=== PATIENT | female | born 1995 | race Caucasian/White ===

== ENCOUNTER 2018-07-03 13:29 | Emergency (ER) | payer BC ==
[2018-07-03 15:14] LABS: Absolute Monocytes 0.8 K/uL (0.1-1.3); Absolute Neutrophil 14.2 K/uL (1.8-8.0); Basophils % 0.1 % (0-1.3); Eosinophils % 0.2 % (0-4.4); Hematocrit 43.4 % (36.0-45.0); Lymphocytes % 6.1 % (15.3-44.8); MCH 32.4 pg (27.0-35.0); MCV 94.9 fL (80-100); Monocytes % 4.9 % (3.3-12.3); RBC Red Blood Cell Count 4.57 M/uL (3.86-4.86)
[2018-07-03 15:19] LABS: Urine Bacteria <20 /HPF (<20); Urine RBC <5 /HPF (NONE SEEN)
[2018-07-03 15:20] LABS: Urine Amorphous Sediment 3+ /HPF (NONE SEEN); Urine Culture Reflex Order NOT NEEDED
[2018-07-03 15:27] LABS: Bilirubin Direct 0.1 mg/dL (0-0.2); Bilirubin Total 0.4 mg/dL (0.2-1.0); Potassium 4.4 mmol/L (3.5-5.1)
[2018-07-03 15:51] LABS: Blood Morphology Comment NOT SEEN (NOT SEEN); Platelet Estimate ADEQ; Urine White Blood Cell Casts OK
--- NOTE | 2018-07-03 15:54 | EDPHYS ---
Physician Documentation [facility] Name: Gibson Shrestha Age: 23 yrs Sex: Female : 1995 Arrival Date: 07/03/2018 Time: 13:37 Bed 26 Private MD: ED Physician Dayday Dueñas HPI: 07/03 15:48 This 23 yrs old Female presents to ER via EMS with complaints of Vomiting. gs 15:48 Onset: The symptoms/episode began/occurred acutely, today. Possible causes: placed a gs nicotine patch. The symptoms are aggravated by nothing. The symptoms are alleviated by nothing. Associated signs and symptoms: Pertinent positives: palpitations. Severity of symptoms: At their worst the symptoms were moderate in the emergency department the symptoms have resolved and did so just prior to arrival. The patient has experienced similar episodes in the past, a few times, has been to physicians before has not received a diagnosis. 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 - Social history:: Smoking status: Patient uses tobacco products, Vapes. - Ebola Screening: : No symptoms or risks identified at this time. ROS: 15:48 All other systems are negative. gs Exam: 15:03 Respiratory: Lungs have equal breath sounds bilaterally, clear to auscultation and gs percussion. No rales, rhonchi or wheezes noted. No increased work of breathing, no retractions or nasal flaring. Abdomen/GI: Soft, non-tender, with normal bowel sounds. No distension or tympany. No guarding or rebound. No evidence of tenderness throughout. Back: No spinal tenderness. No costovertebral tenderness. Full range of motion. Skin: Warm, dry with normal turgor. Normal color with no rashes, no lesions, and no evidence of cellulitis. MS/ Extremity: Pulses equal, no cyanosis. Neurovascular intact. Full, normal range of motion. Neuro: Awake and alert, GCS 15, oriented to person, place, time, and situation. Cranial nerves II-XII grossly intact. Motor strength 5/5 in all extremities. Sensory grossly intact. Cerebellar exam normal. Normal gait. 15:03 ECG was reviewed by the Attending Physician. 15:48 Head/Face: Normocephalic, atraumatic. Eyes: Pupils equal round and reactive to light, gs extra-ocular motions intact. Lids and lashes normal. Conjunctiva and sclera are non-icteric and not injected. Cornea within normal limits. Periorbital areas with no swelling, redness, or edema. ENT: Nares patent. No nasal discharge, no septal abnormalities noted. Tympanic membranes are normal and external auditory canals are clear. Oropharynx with no redness, swelling, or masses, exudates, or evidence of obstruction, uvula midline. Mucous membranes moist. Neck: Trachea midline, no thyromegaly or masses palpated, and no cervical lymphadenopathy. Supple, full range of motion without nuchal rigidity, or vertebral point tenderness. No Meningismus. Chest/axilla: Normal chest wall appearance and motion. Nontender with no deformity. No lesions are appreciated. Cardiovascular: Regular rate and rhythm with a normal S1 and S2. No gallops, murmurs, or rubs. Normal PMI, no JVD. No pulse deficits. 15:48 Constitutional: The patient appears alert, awake. Vital Signs: 13:42 BP 111 / 79; Pulse 63; Resp 18; Temp 97.6(O); Pulse Ox 100% on R/A; tl3 14:59 BP 108 / 77; Pulse 74; Resp 18; Pulse Ox 100% on R/A; tl3 15:50 BP 113 / 76; Pulse 73; Resp 18; Pulse Ox 100% on R/A; tl3 MDM: 13:51 Patient medically screened. gs 15:48 Differential diagnosis: gastroenteritis, arrythmia, medication intolerance. Data reviewed: vital signs, nurses notes. Response to treatment: the patient's symptoms have resolved after treatment, and as a result, I will discharge patient. 07/03 13:51 Order name: Basic Metabolic Panel; Complete Time: 15:47 07/03 13:51 Order name: CBC with Diff; Complete Time: 15:55 07/03 13:51 Order name: Hepatic Function; Complete Time: 15:47 07/03 13:51 Order name: Lipase; Complete Time: 15:47 07/03 13:51 Order name: Urine Microscopic Only; Complete Time: 15:47 07/03 15:04 Order name: Urine Dipstick--Ancillary (enter results) 07/03 13:51 Order name: EKG; Complete Time: 13:52 07/03 13:51 Order name: EKG - Nurse/Tech; Complete Time: 14:45 07/03 13:51 Order name: IV Saline Lock; Complete Time: 14:32 07/03 13:51 Order name: Labs collected and sent; Complete Time: 14:32 07/03 13:51 Order name: Urine Test (obtain specimen); Complete Time: 14:45 07/03 13:51 Order name: Urine Dipstick-Ancillary (obtain specimen); Complete Time: 14:45 07/03 15:04 Order name: Urine --Ancillary (enter results) 07/03 15:26 Order name: CBC Smear Scan; Complete Time: 15:55 EDMS EC:03 Rate is 71 beats/min. Rhythm is regular. ME interval is normal. QRS interval is gs prolonged. No ST changes noted. Clinical impression: Normal ECG and WPW. Interpreted by me. Administered Medications: No medications were administered Disposition: 07/03/18 15:53 Discharged to Home. Impression: Vomiting, Pre-excitation syndrome. - Condition is Stable. - Discharge Instructions: Nausea and Vomiting, Adult, Gsbxf-Aurlbhnth-Nzujx Syndrome. - Medication Reconciliation Form, Thank You Letter, Antibiotic Education, Prescription Opioid Use, Work release form form. - Follow up: Private Physician; When: 2 - 3 days; Reason: Re-evaluation by your physician. Follow up: Martínez Riggs MD; When: 2 - 3 days; Reason: Re-evaluation by your physician. Signatures: Dispatcher [facility]Dayday Bhatia MD MD Brandy Botello, RN RN tl3 Corrections: (The following items were deleted from the chart) 15:53 15:53 07/03/2018 15:53 Discharged to Home. Impression: Vomiting; Pre-excitation gs syndrome. Condition is Stable. Forms are Medication Reconciliation Form, Thank You Letter, Antibiotic Education, Prescription Opioid Use. Follow up: Private Physician; When: 2 - 3 days; Reason: Re-evaluation by your physician. 16:13 15:53 07/03/2018 15:53 Discharged to Home. Impression: Vomiting; Pre-excitation tl3 syndrome. Condition is Stable. Discharge Instructions: Nausea and Vomiting, Adult, Evkup-Ffwagdjci-Loxdr Syndrome. Forms are Medication Reconciliation Form, Thank You Letter, Antibiotic Education, Prescription Opioid Use. Follow up: Private Physician; When: 2 - 3 days; Reason: Re-evaluation by your physician. Follow up: Martínez Riggs; When: 2 - 3 days; Reason: Re-evaluation by your physician. gs
--- NOTE | 2018-07-03 15:54 | ER ---
Nurse's Notes [facility] Name: Gibson Shrestha Age: 23 yrs Sex: Female : 1995 Arrival Date: 07/03/2018 Time: 13:37 Bed 26 Private MD: Diagnosis: Vomiting;Pre-excitation syndrome Presentation: 07/03 13:38 Presenting complaint: EMS states: pt became lightheaded and started vomiting at work tl3 today, she is trying to stop "Vaping" and placed a 21 mg Nicotine patch on 30 minutes prior to events, removed patch immediately. Has vomited three times total, had 4 mg Zofran en route. No longer nauseated. Transition of care: patient was not received from another setting of care. Onset of symptoms was July 03, 2018. Risk Assessment: Do you want to hurt yourself or someone else? Patient reports no desire to harm self or others. Initial Sepsis Screen: Does the patient meet any 2 criteria? No. Patient's initial sepsis screen is negative. Does the patient have a suspected source of infection? No. Patient's initial sepsis screen is negative. Care prior to arrival: Medication(s) given: zofran 4 mg, IV initiated. 20 GA, in the right hand. 13:38 Method Of Arrival: EMS: [facility] tl3 13:38 Acuity: LIA 3 tl3 Triage Assessment: 13:42 General: Appears comfortable, slender, well groomed, well developed, well nourished, tl3 Behavior is calm, cooperative, appropriate for age, flat. Pain: Denies pain. EENT: No deficits noted. No signs and/or symptoms were reported regarding the EENT system. Neuro: Level of Consciousness is awake, alert, obeys commands, Oriented to person, place, time, situation, none. Cardiovascular: Patient's skin is warm and dry. Respiratory: Airway is patent Respiratory effort is even, unlabored, Respiratory pattern is regular, symmetrical. GI: Abdomen is flat, Reports nausea, vomiting. : No signs and/or symptoms were reported regarding the genitourinary system. Derm: No signs and/or symptoms reported regarding the dermatologic system. Musculoskeletal: No signs and/or symptoms reported regarding the musculoskeletal system. RN HEDIS: 13:42 0, LMP 06/2018 tl3 Historical: - Allergies: 13:42 Latex, Natural Rubber; tl3 - Home Meds: 13:42 None [Active]; tl3 - PMHx: 13:42 None; tl3 - PSHx: 13:42 None; tl3 - Immunization history:: Adult Immunizations up to date. - Social history:: Smoking status: Patient uses tobacco products, Vapes. - Ebola Screening: : No symptoms or risks identified at this time. Screenin:45 Abuse screen: Denies threats or abuse. Nutritional screening: No deficits noted. tl3 Tuberculosis screening: No symptoms or risk factors identified. Fall Risk None identified. Assessment: 13:45 Reassessment: No changes from previously documented assessment. GI: Reports vomiting. tl3 14:59 Reassessment: Patient appears in no apparent distress at this time. No changes from tl3 previously documented assessment. Patient and/or family updated on plan of care and expected duration. Pain level reassessed. Patient is alert, oriented x 3, equal unlabored respirations, skin warm/dry/pink. family at bedside, pt is feeling much better, no needs at this time. 14:59 GI: Abdomen is flat, non-distended. tl3 15:50 Reassessment: Patient appears in no apparent distress at this time. No changes from tl3 previously documented assessment. Patient and/or family updated on plan of care and expected duration. Pain level reassessed. Patient is alert, oriented x 3, equal unlabored respirations, skin warm/dry/pink. Vital Signs: 13:42 BP 111 / 79; Pulse 63; Resp 18; Temp 97.6(O); Pulse Ox 100% on R/A; tl3 14:59 BP 108 / 77; Pulse 74; Resp 18; Pulse Ox 100% on R/A; tl3 15:50 BP 113 / 76; Pulse 73; Resp 18; Pulse Ox 100% on R/A; tl3 ED Course: 13:37 Patient arrived in ED. tl3 13:38 Dayday Dueñas MD is Attending Physician. gs 13:38 Brandy Botello, HELENA is Primary Nurse. tl3 13:42 Triage completed. tl3 13:42 Arm band placed on right wrist. tl3 13:45 Patient has correct armband on for positive identification. Bed in low position. Call tl3 light in reach. Side rails up X 1. Pulse ox on. NIBP on. Warm blanket given. Pillow given. 13:45 No provider procedures requiring assistance completed. tl3 13:45 Maintain EMS IV. Dressing intact. Good blood return noted. Site clean \\T\\ dry. tl3 14:59 Initial lab(s) drawn, by me, sent to lab. Urine collected: clean catch specimen, clear, tl3 Amount Voided: 100mL. 15:53 Martínez Riggs MD is Referral Physician. gs 16:12 IV discontinued, intact, bleeding controlled, No redness/swelling at site. Pressure tl3 dressing applied. Administered Medications: No medications were administered Outcome: 15:53 Discharge ordered by . gs 16:12 Discharged to home ambulatory. tl3 16:12 Condition: improved 16:12 Discharge instructions given to patient, family, Instructed on discharge instructions, follow up and referral plans. Demonstrated understanding of instructions, follow-up care. 16:13 Patient left the ED. tl3 Signatures: Dayday Dueñas MD MD Brandy Botello, RN RN tl3 Corrections: (The following items were deleted from the chart) 15:00 14:59 GI: Reports tl3 tl3
[2018-07-03 20:27] LABS: Urine Blood NEGATIVE (NEG); Urine Glucose NEGATIVE (NEG); Urine Protein NEGATIVE (NEG); Urine Specific Gravity 1.015 (1.005-1.030); Urine pH 7.5 (5.0-7.0)
--- NOTE | 2018-07-04 06:46 | EKG ---
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
== END 2018-07-03 16:13 | disposition home or self-care (01) ==
LOC: ER 13:29
DX: I45.6 Pre-excitation syndrome (principal); Z72.0 Tobacco use; Z91.040 Latex allergy status; Z91.048 Other nonmedicinal substance allergy status
CPT/HCPCS: 36415; 80048; 80076; 81003; 81015; 81025; 83690; 85025; 93005; 99283

== ENCOUNTER 2021-09-09 23:58 | Emergency (ER) | payer BC ==
--- OUTSIDE RECORDS SUMMARY | 2021-09-10 | XMS REPORT | Continuity of Care Document ---
:1995 Author Organization [facility] t Address [address] [place] [address] Care Team Providers Name Role Phone ELIZABETH PHOENIX Attending Clinician Unavailable [facility] PHOENIX Admitting Clinician Unavailable Problems This patient has no known problems. Allergies, Adverse Reactions, Alerts Allergy Allergy Status Severity Reaction(s) Onset Inactive Treating Comm ents Source Name Type Date Date Clinician NO KNOWN Drug Active [facility] ALLERGIE Class [facility] Medications This patient has no known medications. Procedures This patient has no known procedures. Encounters Start End Encounter Admission Attending Care Care Encounter Source Date/Time Date/Time Type Type Clinicians Facility Department ID 2021-05-06 2021-05-06 Outpatient [facility] [id number] -[id number] [facility] 19:20:00 19:20:00 [id number] [facility] Results Test Description Test Time Test Comments Results Result Comments Source BUN 2018-12-24 05:48:00 Test Item Value Reference Range Interpretation Comme nts BLOOD UREA NITROGEN (BEAKER) (test code = 354) 10 mg/dL 7-21 [id number] 05:48:00 Test Item Value Reference Range Interpretation Comments SODIUM (BEAKER) (test code = 381) 135 meq/L 136-145 L POTASSIUM (BEAKER) (test code = 4.1 meq/L 3.5-5.1 379) CHLORIDE (BEAKER) (test code = 382) 109 meq/L 98-107 H CO2 (BEAKER) (test code = 355) 20 meq/L 22-29 L [id number] 05:48:00 Test Item Value Reference Range Interpretation Comments CREATININE (BEAKER) 0.68 mg/dL 0.57-1.25 (test code = 358) EGFR (BEAKER) (test 105 mL/min/1.73 ESTIM ATED GFR IS code = 1092) sq m NOT ACCURATE CREATININE CLEARANCE IN PREDICTING GLOMERULAR FILTRATION RATE . ESTIMATED GFR I S NOT APPLICABLE FOR DIALYSIS PATIEN TS. CBC (HEMOGRAM ONLY)2018-12-24 04:50:00 Test Item Value Reference Range Interpretation Comments WHITE BLOOD CELL COUNT (BEAKER) 6.6 K/ L 3.5-10.5 (test code = 775) RED BLOOD CELL COUNT (BEAKER) 4.32 M/ L 3.93-5.22 (test code = 761) HEMOGLOBIN (BEAKER) (test code = 13.7 GM/DL 11.2-15.7 410) HEMATOCRIT (BEAKER) (test code = 42.0 % 34.1-44.9 411) MEAN CORPUSCULAR VOLUME (BEAKER) 97.2 fL 79.4-94.8 H (test code = 753) MEAN CORPUSCULAR HEMOGLOBIN 31.7 pg 25.6-32.2 (BEAKER) (test code = 751) MEAN CORPUSCULAR HEMOGLOBIN CONC 32.6 GM/DL 32.2-35.5 (BEAKER) (test code = 752) RED CELL DISTRIBUTION WIDTH 11.7 % 11.7-14.4 (BEAKER) (test code = 412) PLATELET COUNT (BEAKER) (test 220 K/CU MM 150-450 code = 756) MEAN PLATELET VOLUME (BEAKER) 10.2 fL 9.4-12.3 (test code = 754) NUCLEATED RED BLOOD CELLS 0 /100 WBC 0-0 (BEAKER) (test code = 413) [id number] 20:32:00 Test Item Value Reference Range Interpretation Comments ACTIVATED CLOTTING TIME 109 sec TEST ED AT [place] [address] ([facility]) (test code = HARINI COOK [facility]) [id number] 19:30:00 Test Item Value Reference Range Interpretation Comments ACTIVATED CLOTTING TIME 252 sec TEST ED AT [place] [address] ([facility]) (test code = HARINI Mcgarry [place] [address]) [id number] 08:53:00 Test Item Value Reference Range Interpretation Comments MAGNESIUM (BEAKER) (test code = 2.3 mg/dL 1.6-2.6 627) BASIC METABOLIC [id number] 08:53:00 Test Item Value Reference Range Interpretation Comments SODIUM (BEAKER) 139 meq/L 136-145 (test code = 381) POTASSIUM (BEAKER) 4.6 meq/L 3.5-5.1 (test code = 379) CHLORIDE (BEAKER) 108 meq/L 98-107 H (test code = 382) CO2 (BEAKER) (test 27 meq/L 22-29 code = 355) BLOOD UREA NITROGEN 13 mg/dL 7-21 (BEAKER) (test code = 354) CREATININE (BEAKER) 0.71 mg/dL 0.57-1.25 (test code = 358) GLUCOSE RANDOM 86 mg/dL 70-105 (BEAKER) (test code = 652) CALCIUM (BEAKER) 9.2 mg/dL 8.4-10.2 (test code = 697) EGFR (BEAKER) (test 100 mL/min/1.73 ESTIM ATED GFR IS code = 1092) sq m NOT ACCURATE CREATININE CLEARANCE IN PREDICTING GLOMERULAR FILTRATION RATE . ESTIMATED GFR I S NOT APPLICABLE FOR DIALYSIS PATIEN TS. PROTHROMBIN TIME/[id number] 08:53:00 Test Item Value Reference Range Interpretation Comments PROTIME (BEAKER) (test code = 13.1 seconds 11.7-14.7 759) INR (BEAKER) (test code = 370) 1.0 <=5.9 RECOMMENDED COUMADIN/WARFARIN INR THERAPY RANGESSTANDARD DOSE: 2.0 - 3.0 Includes: PROPHYLAXIS forvenous thrombosis, systemic embolization; TREATMENT for venous thrombosis and/or pulmonary embolus.HIGH RISK: Target INR is 2.5-3.5 for patients with mechanical heart valves.Within 24 hours, if on CoumadinCBC W/PLT COUNT & AUTO [id number] 08:35:00 Test Item Value Reference Range Interpretation Comments WHITE BLOOD CELL COUNT (BEAKER) 3.9 K/ L 3.5-10.5 (test code = 775) RED BLOOD CELL COUNT (BEAKER) 4.40 M/ L 3.93-5.22 (test code = 761) HEMOGLOBIN (BEAKER) (test code = 13.9 GM/DL 11.2-15.7 410) HEMATOCRIT (BEAKER) (test code = 43.0 % 34.1-44.9 411) MEAN CORPUSCULAR VOLUME (BEAKER) 97.7 fL 79.4-94.8 H (test code = 753) MEAN CORPUSCULAR HEMOGLOBIN 31.6 pg 25.6-32.2 (BEAKER) (test code = 751) MEAN CORPUSCULAR HEMOGLOBIN CONC 32.3 GM/DL 32.2-35.5 (BEAKER) (test code = 752) RED CELL DISTRIBUTION WIDTH 11.8 % 11.7-14.4 (BEAKER) (test code = 412) PLATELET COUNT (BEAKER) (test 207 K/CU MM 150-450 code = 756) MEAN PLATELET VOLUME (BEAKER) 10.3 fL 9.4-12.3 (test code = 754) NUCLEATED RED BLOOD CELLS 0 /100 WBC 0-0 (BEAKER) (test code = 413) NEUTROPHILS RELATIVE PERCENT 50 % (BEAKER) (test code = 429) LYMPHOCYTES RELATIVE PERCENT 33 % (BEAKER) (test code = 430) MONOCYTES RELATIVE PERCENT 12 % (BEAKER) (test code = 431) EOSINOPHILS RELATIVE PERCENT 3 % (BEAKER) (test code = 432) BASOPHILS RELATIVE PERCENT 1 % (BEAKER) (test code = 437) NEUTROPHILS ABSOLUTE COUNT 1.94 K/ L 1.56-6.13 (BEAKER) (test code = 670) LYMPHOCYTES ABSOLUTE COUNT 1.29 K/ L 1.18-3.74 (BEAKER) (test code = 414) MONOCYTES ABSOLUTE COUNT (BEAKER) 0.47 K/ L 0.24-0.36 H (test code = 415) EOSINOPHILS ABSOLUTE COUNT 0.12 K/ L 0.04-0.36 (BEAKER) (test code = 416) BASOPHILS ABSOLUTE COUNT (BEAKER) 0.04 K/ L 0.01-0.08 (test code = 417) IMMATURE GRANULOCYTES-RELATIVE 0 % 0-1 PERCENT (BEAKER) (test code = 0868)
[2021-09-10] MEDS ORDERED: NA CHLORIDE 0.9% 1,000 ML ONE ×2 (00:26→04:07)
[2021-09-10] MEDS ORDERED: ONDANSETRON 4 MG/2 ML VIAL ONE (00:52)
[2021-09-10 01:19] LABS: Absolute Lymphocytes (CBC) 1.9 K/uL (0.7-4.9); Basophils % 0.4 % (0-1.3); Hematocrit 35.3 % (36.0-45.0); Lymphocytes % 18.7 % (15.3-44.8); MPV 9.2 fL (7.6-11.3); RBC Red Blood Cell Count 3.73 M/uL (3.86-4.86)
[2021-09-10 01:25] LABS: BUN Blood Urea Nitrogen 13 mg/dL (7-18); Bicarbonate 21 mmol/L (21-32); Glucose Level 112 mg/dL (74-106); Potassium 3.9 mmol/L (3.5-5.1); Sodium Level 140 mmol/L (136-145)
--- NOTE | 2021-09-10 03:31 | ER ---
Nurse's Notes [facility] Name: Gibson Lopez Age: 26 yrs Sex: Female : 1995 Arrival Date: 09/10/2021 Time: 00:00 Bed 14 Private MD: Diagnosis: Delayed or excessive hemorrhage following incomplete spontaneous Presentation: 09/10 00:01 Chief complaint: Patient states: I am 11 weeks , 2 weeks ago I went to my OB ld1 doctor and she said the baby was four weeks behind growth. My OB gave me some medicine to terminate the , the first dose did not work so they gave me a second one. Now I am bleeding really bad and my stomach is cramping, I am losing a lot of blood. Coronavirus screen: At this time, the client does not indicate any symptoms associated with coronavirus-19. Ebola Screen: No symptoms or risks identified at this time. Initial Sepsis Screen: Does the patient meet any 2 criteria? No. Patient's initial sepsis screen is negative. Does the patient have a suspected source of infection? No. Patient's initial sepsis screen is negative. Risk Assessment: Do you want to hurt yourself or someone else? Patient reports no desire to harm self or others. Onset of symptoms was September 10, 2021. 00:01 Method Of Arrival: EMS: [facility] ld1 00:01 Acuity: LIA 3 ld1 Triage Assessment: 00:04 General: Appears in no apparent distress. comfortable, Behavior is calm, cooperative, ld1 appropriate for age. Pain: Complains of pain in right lower quadrant and left lower quadrant Pain does not radiate. Pain currently is 6 out of 10 on a pain scale. at worst was 10 out of 10 on a pain scale. Quality of pain is described as crampy, throbbing, Pain began suddenly, Is intermittent. EENT: No signs and/or symptoms were reported regarding the EENT system. Neuro: Level of Consciousness is awake, alert, obeys commands, Oriented to person, place, time, situation, Appropriate for age. Cardiovascular: Capillary refill < 3 seconds Patient's skin is warm and dry. Respiratory: Airway is patent Respiratory effort is even, unlabored, Respiratory pattern is regular, symmetrical. GI: Abdomen is flat, non-distended. : Reports cramping, in bilateral lower quadrant(s) vaginal bleeding that is with clots, heavy flow. Derm: No signs and/or symptoms reported regarding the dermatologic system. Musculoskeletal: No signs and/or symptoms reported regarding the musculoskeletal system. 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 - Social history:: Smoking status: Patient denies any tobacco usage or history of. Patient/guardian denies using alcohol. Screenin:04 Abuse screen: Denies threats or abuse. Nutritional screening: No deficits noted. as6 Tuberculosis screening: No symptoms or risk factors identified. Fall Risk None identified. Assessment: 00:31 Reassessment: when pt was receiving pt had a vasovagal response, Bradley came to bedside, as6 pt pale, states feeling dizzy and nausea. 02:02 Reassessment: Patient states feeling better. General: Appears in no apparent distress. as6 comfortable, Behavior is calm. Derm: Skin is pale. 03:23 Reassessment: pt ambulating to bathroom, no signs of dizziness reported. as6 04:14 Reassessment: Patient is alert, oriented x 3, equal unlabored respirations, skin bb warm/dry/pink. notified Dr Xiong of pt BP 92/55 new orders received pt medicated see MAR awaiting discharge for completion of IV fluids. 05:13 Reassessment: Patient is alert, oriented x 3, equal unlabored respirations, skin bb warm/dry/pink. pt verbalized understanding of and agrees to plan of care discharge instructions given pt ambulated with steady gait to exit accompanied by family. Vital Signs: 00:09 BP 102 / 69; Pulse 93; Resp 11; Temp 98.6(O); Pulse Ox 100% on R/A; Weight 63.96 kg; ld1 Height 5 ft. 2 in. (157.48 cm); Pain 6/10; 01:53 BP 91 / 52; Pulse 75; Resp 13 S; Pulse Ox 100% on R/A; as6 03:28 BP 98 / 59; Pulse 60; Resp 20 S; Pulse Ox 100% on R/A; as6 04:14 BP 92 / 55; Pulse 64; Resp 16 S; Pulse Ox 97% on R/A; bb 05:15 BP 98 / 45; Pulse 64; Resp 16 S; Temp 98.4(O); Pulse Ox 100% on R/A; bb 00:09 Body Mass Index 25.79 (63.96 kg, 157.48 cm) ld1 ED Course: 00:00 Patient arrived in ED. ld1 00:04 Triage completed. ld1 00:04 Arm band placed on right wrist. ld1 00:07 Bradley Mari PA is PHCP. jr8 00:07 Everardo Xiong MD is Attending Physician. jr8 00:24 Dominick Zapata RN is Primary Nurse. as6 00:35 T\T\S collected, blood band applied to patient. Inserted saline lock: 20 gauge in right ds4 antecubital area, using aseptic technique. Blood collected. 02:04 Placed in gown. Bed in low position. Call light in reach. Side rails up X2. Adult w/ as6 patient. playground monitor on. Pulse ox on. NIBP on. 02:17 US Transvaginal Ob In Process Unspecified. EDMS 05:15 IV discontinued, intact, bleeding controlled, No redness/swelling at site. Pressure bb dressing applied. 05:16 No provider procedures requiring assistance completed. bb Administered Medications: 00:30 Drug: NS 0.9% 1000 ml Route: IV; Rate: 1 bolus; Site: right antecubital; as6 02:23 Follow up: Response: No adverse reaction; IV Status: Completed infusion; IV Intake: as6 1000ml 00:55 Drug: Zofran (Ondansetron) 4 mg Route: IVP; Site: right antecubital; as6 02:23 Follow up: Response: No adverse reaction as6 04:15 Drug: NS 0.9% 1000 ml Route: IV; Rate: 1 bolus; Site: right antecubital; bb 05:10 Follow up: IV Status: Completed infusion; IV Intake: 1000ml bb Intake: 02:23 IV: 1000ml; Total: 1000ml. as6 05:10 IV: 1000ml; Total: 2000ml. bb Outcome: 03:31 Discharge ordered by MD. hart 05:16 Discharged to home ambulatory, with family. bb 05:16 Condition: stable 05:16 Discharge instructions given to patient, Instructed on discharge instructions, follow up and referral plans. Demonstrated understanding of instructions, follow-up care. 05:16 Patient left the ED. bb Signatures: Dispatcher [employer] EDSonali Cain RN RN Bradley Dejesus PA PA jr8 Burak Soriano4 Neela Florence RN RN ld1 Dominick Zapata RN RN as6 Corrections: (The following items were deleted from the chart) 00:11 00:04 PMHx: None; ld1 ld1 00:11 00:04 PSHx: None; ld1 ld1
--- NOTE | 2021-09-10 03:31 | EDPHYS ---
Physician Documentation [facility] Name: Gibson Lopez Age: 26 yrs Sex: Female : 1995 Arrival Date: 09/10/2021 Time: 00:00 Bed 14 Private MD: ED Physician Everardo Xiong HPI: 09/10 00:56 This 26 yrs old Female presents to ER via EMS with complaints of Miscarriage. jr8 00:56 Modifying factors: The patient symptoms are alleviated by nothing, the patient symptoms jr8 are aggravated by activity. The patient has not experienced similar symptoms in the past. The patient has been recently seen by a physician:. This is a 26-year-old female with that presented to the emergency room with complaints of vaginal bleeding. Patient recently saw OB and was supposed to be approximately 11 weeks . Gestation of the fetus was measuring at 6 weeks. OB talk to them to explain that child had no signs of life. Opted to do medication induced for the miscarriage. Patient stated that she started to bleed heavily tonight and became weak and dizzy.. 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 - Social history:: Smoking status: Patient denies any tobacco usage or history of. Patient/guardian denies using alcohol. ROS: 00:56 Eyes: Negative for injury, pain, redness, and discharge, ENT: Negative for injury, jr8 pain, and discharge, Neck: Negative for injury, pain, and swelling, Cardiovascular: Negative for chest pain, palpitations, and edema, Respiratory: Negative for shortness of breath, cough, wheezing, and pleuritic chest pain, Back: Negative for injury and pain, MS/Extremity: Negative for injury and deformity, Skin: Negative for injury, rash, and discoloration, Neuro: Negative for headache, weakness, numbness, tingling, and seizure. 00:56 Abdomen/GI: Positive for abdominal cramps. 00:56 : Positive for vaginal bleeding. Exam: 00:56 Constitutional: This is a well developed, well nourished patient who is awake, alert, jr8 and in no acute distress. Cardiovascular: Regular rate and rhythm with a normal S1 and S2. No gallops, murmurs, or rubs. Normal PMI, no JVD. No pulse deficits. Respiratory: Lungs have equal breath sounds bilaterally, clear to auscultation and percussion. No rales, rhonchi or wheezes noted. No increased work of breathing, no retractions or nasal flaring. Abdomen/GI: Soft, non-tender, with normal bowel sounds. No distension or tympany. No guarding or rebound. No evidence of tenderness throughout. Back: No spinal tenderness. No costovertebral tenderness. Full range of motion. Skin: Warm, dry with normal turgor. Normal color with no rashes, no lesions, and no evidence of cellulitis. MS/ Extremity: Pulses equal, no cyanosis. Neurovascular intact. Full, normal range of motion. Neuro: Awake and alert, GCS 15, oriented to person, place, time, and situation. Cranial nerves II-XII grossly intact. Motor strength 5/5 in all extremities. Sensory grossly intact. 00:56 : Pelvic Exam: External exam: is normal, Speculum exam: moderate bleeding, blood clots in vaginal vault, os that is open, tissue in cervix is seen, the nurse was present for the exam. Vital Signs: 00:09 BP 102 / 69; Pulse 93; Resp 11; Temp 98.6(O); Pulse Ox 100% on R/A; Weight 63.96 kg; ld1 Height 5 ft. 2 in. (157.48 cm); Pain 6/10; 01:53 BP 91 / 52; Pulse 75; Resp 13 S; Pulse Ox 100% on R/A; as6 03:28 BP 98 / 59; Pulse 60; Resp 20 S; Pulse Ox 100% on R/A; as6 04:14 BP 92 / 55; Pulse 64; Resp 16 S; Pulse Ox 97% on R/A; bb 05:15 BP 98 / 45; Pulse 64; Resp 16 S; Temp 98.4(O); Pulse Ox 100% on R/A; bb 00:09 Body Mass Index 25.79 (63.96 kg, 157.48 cm) ld1 MDM: 00:07 Patient medically screened. jr8 00:50 Data reviewed: vital signs, nurses notes, lab test result(s), radiologic studies, jr8 ultrasound. Data interpreted: Pulse oximetry: on room air is 100 %. Interpretation: normal. Counseling: I had a detailed discussion with the patient and/or guardian regarding: the historical points, exam findings, and any diagnostic results supporting the discharge/admit diagnosis, lab results, radiology results. ED course: I was able to complete pelvic exam on patient. Was able to remove POC from the cervical os. No gross hemorrhaging at this time. Will complete transvaginal ultrasound to confirm there is no more POC present. 03:29 ED course: Patient remains hemodynamically stable at this time. Has been able to get up jr8 and walk to the bathroom without any dizziness, weakness, near syncope, syncope. Bleeding has markedly decreased since I evacuated all products of conception. Ultrasound showed no retained products as well. Patient to follow-up in the next 24 to 48 hours with her BUSINESS AREA DIRECTOR. If she were to feel worse at any point time to immediately come back for further evaluation. Patient good with this and will follow up and/or come back.. 09/10 00:08 Order name: Basic Metabolic Panel; Complete Time: :39 8 09/10 00:08 Order name: CBC with Diff; Complete Time: 01:39 8 09/10 00:08 Order name: TS; Complete Time: 02:11 8 09/10 00:51 Order name: US Transvaginal Ob jr 09/10 02:17 Order name: Hemoglobin; Complete Time: 03:26 bb 09/10 04:22 Order name: ABO/RH no charge EDMT 09/10 00:08 Order name: IV Saline Lock; Complete Time: 8 09/10 00:08 Order name: Labs collected and sent; Complete Time: 8 09/10 00:08 Order name: NPO; Complete Time: 8 09/10 00:08 Order name: Pelvic Exam Setup; Complete Time: : Administered Medications: 00:30 Drug: NS 0.9% 1000 ml Route: IV; Rate: 1 bolus; Site: right antecubital; as6 02:23 Follow up: Response: No adverse reaction; IV Status: Completed infusion; IV Intake: as6 1000ml 00:55 Drug: Zofran (Ondansetron) 4 mg Route: IVP; Site: right antecubital; as6 02:23 Follow up: Response: No adverse reaction as6 04:15 Drug: NS 0.9% 1000 ml Route: IV; Rate: 1 bolus; Site: right antecubital; bb 05:10 Follow up: IV Status: Completed infusion; IV Intake: 1000ml bb Disposition: 05:54 Co-signature as Attending Physician, Everardo Xiong MD. [facility] Disposition Summary: 09/10/21 03:31 Discharge Ordered Location: Home jr8 Problem: new jr8 Symptoms: have improved jr8 Condition: Stable jr8 Diagnosis - Delayed or excessive hemorrhage following incomplete spontaneous jr8 Followup: jr8 - With: Private Physician - When: 1 - 2 days - Reason: Recheck today's complaints, Continuance of care, Re-evaluation by your physician Discharge Instructions: - Discharge Summary Sheet jr8 - Miscarriage jr8 Forms: - Medication Reconciliation Form jr8 - Thank You Letter jr8 - Antibiotic Education jr8 - Prescription Opioid Use jr8 Signatures: Dispatcher [employer] Sonali Uribe RN RN bb Bradley Mari PA PA jr8 Everardo Xiong MD MD [facility] Neela Florence RN RN ld1 Dominick Zapata RN RN as6 Corrections: (The following items were deleted from the chart) 00:11 00:04 PMHx: None; ld1 ld1 00:11 00:04 PSHx: None; ld1 ld1
[2021-09-10 05:30] VITALS: BP 98/45; TEMP 98.4; O2SAT 100
--- NOTE | 2021-09-10 07:40 | RAD REPORT ---
EXAM DESCRIPTION: US - Transvaginal OB - 09/10/2021 2:17 am CLINICAL HISTORY: with vaginal bleeding COMPARISON: None. FINDINGS: The uterus measures 8 x 5 x 5 centimeters. The endometrial stripe measures 16 millimeters and is mildly inhomogeneous. A 3 millimeter possible sac is present within the cervical canal. Ovaries are normal in size and echotexture.. The right and left adnexa unremarkable No significant free fluid IMPRESSION: 3 millimeter possible gestational sac within cervical canal. This may represent an incom plete . Other considerations include an early intrauterine in which the gestational sac is not seen and even ectopic . This all should be correlated clinically and with serial beta HCG levels. Followup endovaginal sonogr am in 1 week recommended
== END 2021-09-10 05:16 | disposition home or self-care (01) ==
LOC: ER 23:58
DX: O03.1 Delayed or excessive hemorrhage following incomplete spontaneous abortion (principal); Z91.012 Allergy to eggs; Z91.018 Allergy to other foods; Z91.040 Latex allergy status; Z91.048 Other nonmedicinal substance allergy status
CPT/HCPCS: 96361; 85025; 80048; 36415; 86900; 86850; 86901; 85018; 76817; 96374; 99284; J7030 ×2; J2405